=== PATIENT | male | born 1995 | race Asian ===

== ENCOUNTER 2016-12-25 01:57 | Emergency (ER) | payer SELFPAY ==
[~2016-12-25] VITALS: Ht 180.3 cm; Wt 78.2 kg
[2016-12-25 06:38] VITALS: BP 125/69
== END 2016-12-25 06:52 | disposition home or self-care (01) ==
LOC: EDBD 02:00 → EMS 02:00
DX: S00.83XA Contusion of other part of head, initial encounter (principal); F17.210 Nicotine dependence, cigarettes, uncomplicated; V43.92XA Unspecified car occupant injured in collision with other type car in traffic accident, initial encounter; Y93.89 Activity, other specified; Y92.413 State road as the place of occurrence of the external cause; Y99.9 Unspecified external cause status
CPT/HCPCS: 99281